=== PATIENT | female | born 1980 | race Caucasian/White ===

== ENCOUNTER 2019-10-29 08:15 | Inpatient (IN) | payer MEDICAID, OTHER ==
[~2019-10-29] VITALS: Ht 149.9 cm; Wt 57.5 kg
[2019-10-29] MEDS ORDERED: SERT50TA12 PO (08:50)
[2019-10-29 09:08] LABS: BASOPHILS % (AUTO) 0.3 % (0.0-2.0); EOSINOPHILS % (AUTO) 0.4 % (1.0-6.0); HEMATOCRIT 39.2 % (36-46); HEMOGLOBIN 13.2 g/dL (12.0-16.0); LYMPHOCYTES # (AUTO) 1.3 K/uL (1.0-4.8); LYMPHOCYTES % (AUTO) 15.2 % (22.0-44.0); MEAN CORPUSCULAR HEMOGLOBIN 32.2 pg (26.0-34.0); MEAN CORPUSCULAR HGB CONC 33.6 G/dL (31.0-37.0); MEAN CORPUSCULAR VOLUME 96 fL (80-100); MONOCYTES # (AUTO) 0.8 K/uL (0.1-1.0); MONOCYTES % (AUTO) 9.3 % (2.0-9.0); NEUTROPHILS # (AUTO) 6.4 K/uL (1.8-7.7); NEUTROPHILS % (AUTO) 74.8 % (40.0-70.0); PLATELET COUNT (AUTO) 371 K/uL (150-450); RED BLOOD CELL COUNT(AUTO) 4.08 MIL/uL (4.00-5.20); RED CELL DISTRIBUTION WIDTH 12.8 % (11.5-14.5)
[2019-10-29 09:25] LABS: ANION GAP 9 mmol/L (8-16); CALCIUM, TOTAL 8.8 mg/dL (8.8-10.5); CARBON DIOXIDE 27 mmol/L (22-29); CHLORIDE 105 mmol/L (98-107); CREATININE 0.71 mg/dL (0.60-1.30); GLOMERULAR FILTR. RATE CALC > 60 mL/min (>60); GLUCOSE,RANDOM 84 mg/dL (70-110); POTASSIUM 3.2 mmol/L (3.5-5.1); SODIUM SERUM 141 mmol/L (136-145); UREA NITROGEN, BLOOD 7 mg/dL (7-18)
[2019-10-29 09:30] LABS: ALANINE AMINOTRANSFERASE 31 U/L (12-78); ALBUMIN 4.2 g/dL (3.4-5.0); ALKALINE PHOSPHATASE 74 U/L (46-116); ASPARTATE AMINOTRANSFERASE 30 U/L (15-37); BILIRUBIN,TOTAL 0.5 mg/dL (0.1-1.0); TOTAL PROTEIN, SERUM 7.9 g/dL (6.4-8.2)
[2019-10-29] MEDS ORDERED: HALOPERIDOL 5 MG TABLET PO PRN (11:15)
[2019-10-29] MEDS ORDERED: ZOLPIDEM TARTRATE 10 MG TABLET PO PRN (11:15)
[2019-10-29] MEDS ORDERED: LORazepam 2 MG TABLET PO PRN (11:15)
[2019-10-29 11:28] LABS: AMPHET/METH SCREEN,URINE POSITIVE (NEGATIVE); BARBITURATE SCREEN, URINE NEGATIVE (NEGATIVE); BENZODIAZEPINES SCREEN,URINE NEGATIVE (NEGATIVE); CANNABINOID SCREEN,URINE NEGATIVE (NEGATIVE); COCAINE SCREEN,URINE NEGATIVE (NEGATIVE); METHADONE SCREEN, URINE NEGATIVE (NEGATIVE); OPIATE SCREEN,URINE NEGATIVE (NEGATIVE)
[2019-10-29 11:29] LABS: PHENCYCLIDINE SCREEN,URINE NEGATIVE (NEGATIVE)
[2019-10-29 12:45] VITALS: BP 156/102
[2019-10-29] MEDS: AmLODIPine BESYLATE 5 MG TABLET PO SCH (13:22)
[2019-10-29] MEDS ORDERED: ACETAMINOPHEN 325 MG TABLET PO PRN (13:30)
[2019-10-29] MEDS ORDERED: GuaiFENesin/D-METHORPHAN [SUGAR-FREE] 200-20MG/10 ML SYRUP UDCUP PO PRN (13:30)
[2019-10-29] MEDS ORDERED: LOPERAMIDE HCL 2 MG CAPSULE PO PRN (13:30)
[2019-10-29] MEDS ORDERED: ONDANSETRON HCL 4 MG TABLET PO PRN (13:30)
[2019-10-29] MEDS ORDERED: MAG HYDROX/AL HYDROX/SIMETH ES 30 ML SUSPENSION UDCUP PO PRN (13:30)
[2019-10-29] MEDS ORDERED: DOCUSATE SODIUM 100 MG CAPSULE PO PRN (13:30)
[2019-10-29] MEDS ORDERED: CloNIDine HCL 0.1 MG TABLET PO PRN (13:30)
[2019-10-29] MEDS ORDERED: MAGNESIUM HYDROXIDE SUSPENSION 30 ML UDCUP PO PRN (13:30)
[2019-10-29] MEDS ORDERED: IBUPROFEN 400 MG TABLET PO PRN (13:30)
[2019-10-29] MEDS ORDERED: PETROLATUM,WHITE 28 GM JELLY TP PRN (13:30)
[2019-10-29] MEDS ORDERED: NICOTINE 14 MG/24 HOUR PATCH TD PRN (13:30)
[2019-10-29] MEDS ORDERED: POTASSIUM CHLORIDE 20 MEQ ER TABLET PO ONE (13:30)
[2019-10-29] MEDS ORDERED: ALBUTEROL SULFATE HFA 90 MCG/PUFF 8 GM INHALER IH PRN (13:30)
[2019-10-29 17:00] VITALS: BP 142/96
[2019-10-30] MEDS: AmLODIPine BESYLATE 5 MG TABLET PO SCH (08:37)
[2019-10-30 08:47] LABS: CHOL/HDL RATIO 2.2 (3.9-5.7)
[2019-10-30 08:51] LABS: POTASSIUM 4.1 mmol/L (3.5-5.1)
[2019-10-30 08:59] VITALS: BP 139/95
[2019-10-30] MEDS: SERTRALINE HCL 50 MG TABLET PO SCH (12:54)
[2019-10-30] MEDS: MULTIVITAMINS, THERAPEUTIC TABLET PO SCH (12:54)
[2019-10-30 16:56] VITALS: BP 141/83
[2019-10-30] MEDS: RisperiDONE 1 MG TABLET PO SCH (20:07)
[2019-10-31] MEDS: MULTIVITAMINS, THERAPEUTIC TABLET PO SCH (08:33)
[2019-10-31] MEDS: AmLODIPine BESYLATE 5 MG TABLET PO SCH (08:33)
[2019-10-31] MEDS: SERTRALINE HCL 50 MG TABLET PO SCH (08:33)
[2019-10-31 08:51] VITALS: BP 128/71
[2019-10-31 16:56] VITALS: BP 155/82
[2019-10-31] MEDS: RisperiDONE 1 MG TABLET PO SCH (20:07)
[2019-11-01 06:34] VITALS: BP 119/72
[2019-11-01] MEDS: MULTIVITAMINS, THERAPEUTIC TABLET PO SCH (08:54)
[2019-11-01] MEDS: SERTRALINE HCL 50 MG TABLET PO SCH (08:54)
[2019-11-01] MEDS: AmLODIPine BESYLATE 5 MG TABLET PO SCH (08:54)
[2019-11-01] MEDS ORDERED: SERT50TA12 PO (11:23)
[2019-11-01] MEDS ORDERED: MULT-1239 PO (13:22)
[2019-11-01] MEDS ORDERED: AMLO5TAB66 PO (13:24)
== END 2019-11-01 15:45 | disposition home or self-care (01) | DRG 885 ==
LOC: EMS 08:16 → 3EI 12:16
DX: F33.3 Major depressive disorder, recurrent, severe with psychotic symptoms (principal); R45.851 Suicidal ideations; F15.10 Other stimulant abuse, uncomplicated; F10.10 Alcohol abuse, uncomplicated; F41.9 Anxiety disorder, unspecified; F19.10 Other psychoactive substance abuse, uncomplicated; R03.0 Elevated blood-pressure reading, without diagnosis of hypertension; E87.6 Hypokalemia; F43.10 Post-traumatic stress disorder, unspecified; Z91.14 Patient's other noncompliance with medication regimen; Y90.9 Presence of alcohol in blood, level not specified; Z91.5 Personal history of self-harm
CPT/HCPCS: 84132; G0480